=== PATIENT | male | born 1985 | race Two or more races ===

== ENCOUNTER 2020-05-02 09:23 | Emergency (ER) | payer SELFPAY ==
[~2020-05-02] VITALS: Ht 160 cm; Wt 73.9 kg
[2020-05-02 09:27] VITALS: BP 151/93
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
[2020-05-02] MEDS ORDERED: HYDROcodone/Acetamin 7.5/325 tab ORAL ONE (09:45)
[2020-05-02] MEDS ORDERED: Lidocaine 1% Plain 30 ml INJ ONE (09:45)
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
[2020-05-02] MEDS ORDERED: fentaNYL 100 mcg/2 mL IV ONE ×3 (11:00→11:30)
[2020-05-02] MEDS ORDERED: IBUPROFEN600 M1 ORAL (12:05)
[2020-05-02] MEDS ORDERED: NORCO 5-325 TA1 EAC1 ORAL (12:05)
[2020-05-02 12:50] VITALS: BP 135/82
--- NOTE | 2020-05-02 12:57 | Diagnostic Imaging Report ---
Indication: Wrist pain, fracture. Status post reduction Technique: 2 views of the right wrist Comparison: Earlier the same day Findings: Comminuted fracture of the distal radius with improved alignment status post external reduction and casting. No new acute fractures appreciated however note that overlying cast obscures fine bony and soft tissue detail. IMPRESSION: Comminuted fracture of the distal radius with improved alignment status post external reduction and casting.
== END 2020-05-02 12:50 | disposition home or self-care (01) ==
LOC: EDBD 09:23 → EMR 09:50
DX: S52.501A Unspecified fracture of the lower end of right radius, initial encounter for closed fracture (principal); V43.52XA Car driver injured in collision with other type car in traffic accident, initial encounter; Y92.410 Unspecified street and highway as the place of occurrence of the external cause; R60.0 Localized edema
CPT/HCPCS: 25605; 73100; 73110; 96374; 99283; J2001; J3010